=== PATIENT | male | born 1940 | race Asian ===

== ENCOUNTER → 2016-05-20 | Outpatient (CLI) | payer MEDICARE, MEDICAID ==
[~2016-05-20] VITALS: Ht 33 cm; Wt 0.5 kg
[~2016-05-20] MED LIST: Heparin 2000 units/Ns 1000ml INJ ONE; Heparin Sod 1000 units/ml 10ml INJ ONE; Lidocaine 1% Plain 30 ml INJ ONE; Sodium Bicarbonate 8.4% 50ml Inj IV ONE
--- NOTE | 2016-05-20 16:43 | Diagnostic Imaging Report ---
Indications: Needs long-term IV access Technique: Ultrasound confirms patent compressible right brachial vein. Total sterile technique, including sterile probe cover and sterile gel, hat, mask,, sterile gown, large sterile drape, and preparation with 2% chlorhexidine utilized. Local anesthesia with 1% lidocaine. Under real-time ultrasound guidance, puncture the vein using 21-gauge needle, documented and archived, passage 0.018 guidewire under direct fluoroscopy, which was used to determine appropriate catheter length, exchange for 5 Iraqi peel-away sheath. 5 [place] Bard dual-lumen power PICC cut to cm. It was inserted through the peel-away sheath. Peel-away sheath and guidewire removed. Catheter fixed to the skin. Both catheter ports aspirated and flushed. Patient tolerated procedure well, without immediate complication. Digital radiograph documents satisfactory catheter tip position, at the cavoatrial junction. Total fluoroscopy time 0.1 minutes. Total dose area product 21 dGycm2 Impression: Successful placement of right arm PICC under sonographic and fluoroscopic guidance, as described above.
== END | disposition home or self-care (01) ==
LOC: RAD 15:03
DX: Z79.899 Other long term (current) drug therapy (principal)
CPT/HCPCS: 36569; 76937; J1644; J2001; J3490